=== PATIENT | male | born 1970 | race Caucasian/White ===

== ENCOUNTER → 2023-08-05 14:44 | Outpatient (REF) | payer OTHER, SELFPAY ==
--- NOTE | 2023-08-05 14:48 | CA_ITS ---
Transthoracic Echocardiogram Patient (Last, First, Middle): Kraig Greenfield R Gender: Male Date of : 1970 Age: 53 Procedure Date: 08/05/2023 Procedure Type: Transthoracic Echocardiogram Location: OP Height: 177.8 cm Weight: 95.26 kg BSA: 2.13 m2 Heart Rate: 82 bpm BP: 142 / 74 mmHg Wildlife Manager: VANI Referring MD: Ravi Bañuelos MD Phlebotomy Coordinator: Sharan Stokes MD Symptoms: PVC'S DYSPNEA ON EXERTION I49.3 R06.09 Study Quality: Fair ECG Rhythm: normal sinus rhythm with frequent PVCs Conclusions: - Essentially normal study Findings Procedure Information The quality of the study was technically difficult. The study quality is limited by patients body habitus. Left Ventricle Normal left ventricular size, thickness, and systolic function. The visually estimated ejection fraction is between 60-65%. Spectral Doppler is indicative of a normal filling pattern. Right Ventricle Normal right ventricular cavity size and systolic function. Atria The left atrium is normal in size. Interatrial shunt cannot be excluded. The right atrium is normal in size. Aortic Valve Normal aortic valve structure and function. There is no aortic valve stenosis. There is no aortic valve regurgitation. Mitral Valve Normal mitral valve structure and function. There is trace mitral valve regurgitation. There is no mitral valve stenosis. Pulmonic Valve The pulmonic valve is likely normal. Tricuspid Valve Normal tricuspid valve structure. There is trace tricuspid valve regurgitation. The right ventricular systolic pressure is normal. The right ventricular systolic pressure is 23 mmHg. Normal right atrial pressure. There is no evidence of pulmonary hypertension. Great Vessels The pulmonary artery was not well visualized. There is no dilatation of the ascending aorta measuring 3.10 cm. Venous The inferior vena cava is normal in size and collapses greater than 50% with inspiration. Pericardium/Pleural There is no evidence of pericardial effusion. Prior Study Comparison No prior study available for comparison. Measurements 2D Linear Measurements IVSd: 0.64 0.6-0.9/0.6-1.0 cm LVIDd: 5.14 3.9-5.3/4.2-5.9 cm LVIDd Index: 2.41 2.4-3.2/2.2-3.1 cm/m2 LVIDs: 3.64 2.0-3.6 cm LVPWd: 0.73 0.7-1.1 cm LA Diam: 3.50 2.7-3.8/3.0-4.0 cm LAIDs Index: 1.64 1.5-2.3 cm/m2 LV Mass: 145.04 67-162/88-224 g LV Mass Index: 68.09 43-95/49-115 g/m2 LVOT Diam: 2.30 3.0+(-)1.3 cm 2D Systolic Function EF 4C: 61.40 >55% EF 2C: 63.10 >55% EF BiP: 63.20 >55% Mitral Valve MV Pk E: 0.78 MV PK A: 0.62 MV Decel Time: 140.00 E/A: 1.20 E'Lateral: 10.30 E'Medial: 12.30 E/E' Med: 6.30 E/E' Lat: 7.50 PHT: 41.00 MVA PHT: 5.37 Decel Glynn: 5.54 Aortic Valve AoV Pk Manuel: 1.35 AoV Pk Grad: 7.00 GEORGE: 3.80 LVOT LVOT Pk Manuel: 1.25 LVOT Mn Manuel: 0.90 LVOT VTI: 0.24 LVOT Pk Grad: 6.00 LVOT Mn Grad: 4.00 LVOT Diam: 2.30 LVOT Area: 4.15 Diastolic Function MV Pk E: 0.78 MV Pk A: 0.62 E/A: 1.20 E'Medial: 12.30 E/E' Med: 6.30 E' Laterial: 10.30 E/E' Lat: 7.50 Right Ventricle TAPSE (mm): 22.90 TVS' Manuel: 12.70 Tricuspid Valve TR Pk Manuel: 2.25 TR Pk Grad: 20.00 RA Press: 3.00 RVSP: 23.00 Great Vessels Aorta Sinus of Valsalva: 2.90 2.0-3.5 cm Ao Asc: 3.10 2.1-3.4 cm Ao Arch: 2.70 Pulmonary Valve PV Pk Manuel: 1.25 Peak PV Grad: 6.00 Updated in Other Vendor System with Status of Final Sharan Stokes MD electronically signed on 08/06/2023 1:07:46 PM with status of Final
== END ==
LOC: HO.CARD 14:44
PROVIDERS: PCP Pediatrics; Visit Provider Internal Medicine Cardiovascular Disease
DX: I49.3 Ventricular premature depolarization (principal); R06.09 Other forms of dyspnea
CPT/HCPCS: 93306

== ENCOUNTER → 2023-08-05 14:48 | Outpatient (BNV) | payer OTHER, SELFPAY | PROVIDERS: PCP Pediatrics; Visit Provider Internal Medicine Cardiovascular Disease | DX: R06.09 Other forms of dyspnea (principal); I49.3 Ventricular premature depolarization | CPT/HCPCS: 93306 ==